=== PATIENT | male | born 1945 | race Caucasian/White ===

== ENCOUNTER → 2018-05-15 | Outpatient (CLI) | payer OTHER ==
--- NOTE | 2018-05-15 13:37 | RAD ---
EXAM: Renal sonogram. HISTORY: Renal insufficiency. TECHNIQUE: Sonographic imaging of the kidneys and bladder was performed. COMPARISON: None. FINDINGS: The right kidney measures 10.3 cm [id number]. The left kidney measures 11.3 cm [id number]. No solid renal lesion is seen. There are multiple renal cysts, the largest of which on the right measures 2.4 cm the largest of which on the left measures 4.0 cm. There is hepatic steatosis. The bladder is unremarkable. The ureteral jets are both seen. IMPRESSION: 1. Bilateral renal cysts. 2. Otherwise, sonographically unremarkable kidneys. Electronically signed by: Olena Narayanan MD (05/15/2018 1:33 PM) [id number]
== END | disposition home or self-care (01) ==
LOC: US 09:15
PROVIDERS: ATTEND Nurse Practitioner Family
DX: N28.1 Cyst of kidney, acquired (principal); K76.0 Fatty (change of) liver, not elsewhere classified; N18.4 Chronic kidney disease, stage 4 (severe)
CPT/HCPCS: 76770

== ENCOUNTER → 2018-07-19 | Outpatient (CLI) | payer OTHER ==
--- NOTE | 2018-07-19 16:45 | RAD ---
CHEST PA LATERAL CLINICAL INDICATION: DYSPNEA WITH EXERTION, FORMER SMOKER, COUGH, emphysema COMPARISON: None FINDINGS: Heart is normal in size. Lungs are hyperinflated. Diffuse bilateral prominent bronchial vascular markings are seen with interstitial opacities. No focal consolidation. No pneumothorax or pleural effusion. Visualized bony thorax within normal limits. IMPRESSION: Findings of COPD. Superimposed atypical/viral infection/bronchitis. Electronically signed by: Rajat Paz DO (07/19/2018 4:42 PM) [id number]
== END | disposition home or self-care (01) ==
LOC: RAD 16:20
DX: J44.9 Chronic obstructive pulmonary disease, unspecified (principal)
CPT/HCPCS: 71046